=== PATIENT | female | born 1955 | race Caucasian/White ===

== ENCOUNTER 2016-09-04 16:57 | Emergency (ER) | payer BC, OTHER ==
--- NOTE | 2016-09-04 18:43 | ERNOTE ---
Syncope ER HPI Date of Service: 09/04/16 Stated Complaint: PASSED OUT AT WORK Time Seen by Provider: 09/04/16 18:01 Source: patient Exam Limitations: no limitations Allergies/Adverse Reactions: Allergies No Known Allergies Allergy (Unverified 09/04/16 17:51) Home Medications: HOME MEDICATIONS ALPRAZolam [Xanax] 0.5 mg PO HS 09/04/16 [Last Taken Unknown] PARoxetine HCL [Paxil] 20 mg PO HS 09/04/16 [Last Taken Unknown] Pantoprazole Sodium [Protonix] 20 mg PO DAILY 09/04/16 [Last Taken Unknown] - History of Present Illness Narrative: Pt. comes in with c/o passing out at work 4 hours ago. Pt. denies any recent illness, dizziness, NVD, SOB, or fever. Pt. does state that she had R calf pain that she was given an injection for her knee for and it has now moved to her L calf and extends up her post leg to her hip. Pt. states that all symptoms have resolved at this time without treatment. Review of Systems - Review of Systems Constitutional: Present: no symptoms reported. Absent: recent illness, fever, chills, weakness, fatigue, malaise EYE: Present: no symptoms reported. Absent: blurred vision, double vision, vision changes ENT: Present: no symptoms reported. Absent: nose pain, nose congestion, nasal drainage Respiratory: Present: no symptoms reported. Absent: shortness of breath, cough , wheezing Cardiology: Present: no symptoms reported. Absent: chest pain, palpitations, edema Gastrointestinal/Abdominal: Present: no symptoms reported. Absent: nausea, vomiting, diarrhea, abdominal pain Genitourinary: Present: no symptoms reported Musculoskeletal: Present: muscle pain - L calf Skin: Present: no symptoms reported. Absent: rash, change in hair/nails Neurological: Present: headache. Absent: dizziness/light-headedness, numbness, tingling All Other Systems: All systems neg except as marked - Patient's Past Medical History Patient History - Medical: GERD Patient History - Cardiac/Respiratory: No pertinent hx Patient History - Cancer: No Hx of Cancer Patient History - Surgical Procedures: No surgical history Patient History - Other: None - Social History Living Situations: spouse Physical Exam - Physical Exam General Appearance: Present: wd/wn, alert, no apparent distress Eye Exam: Normal inspection: bilateral, PERRL: bilateral, EOMI: bilateral Ears, Nose, Throat: Present: normal ENT inspection, hearing grossly normal, normal pharynx Neck: Present: normal inspection, nontender Respiratory: Present: no respiratory distress, normal breath sounds, no accessory muscle use, chest nontender, lungs clear Cardiovascular/Chest: Present: regular rate, rhythm, no murmur, normal peripheral pulses Gastrointestinal/Abdominal: Present: normal bowel sounds, nontender, nondistended, soft, no organomegaly Back Exam: Present: normal inspection, normal range of motion, no CVA tenderness , no vertebral tenderness Extremity Exam: Present: no edema, normal range of motion, calf tenderness - L Neurological Exam: Present: alert, oriented, normal mood/affect, no motor/ sensory deficits, clip baker II-XII nml as tested, normal cerebellar test. Absent: motor weakness Skin Exam: Present: normal color, warm/dry. Absent: pallor, skin rash ED Progress - Date and Time Seen: Date and Time: 09/04/16 22:07 ruled out cardiac, infectious, and neurovascular causes for syncope. Feel that this may have been isolated problem probably vasovagal will have pt. follow up with PCP 09/04/16 22:22 - Results and Orders Patient's Lab Results:: I have reviewed the patient's lab results. - Vital Signs Patient's Vital Signs:: I have reviewed the patient's vital signs. Vital Signs: Vital Signs 09/04/16 09/04/16 17:39 17:45 Temperature 36.4 C L Pulse Rate 75 73 Respiratory 19 Rate Blood Pressure 170/100 O2 Sat by Pulse 98 Oximetry - EKG EKG: NSR EKG read: Interp. by me - CT/Ultrasound CT/Ultrasound Narrative: US negative for DVT CT head negative for any acute process. - Progress/Reassessment Chief Complaint: Syncopal Episode Progress:: Unchanged Departure Clinical Impression: Syncope Qualifiers: Syncope type: unspecified Qualified Code(s): R55 - Syncope and collapse - Departure Disposition: Home self-care Condition: Good Instructions: Syncope, [id number] Additional Instructions: Please follow up with primary provider on Wednesday and increase fluid intake Referrals: Patrick Kendall DO [Primary Care Provider] -
[2016-09-04 19:05] LABS: Hematocrit 37.5 % (37.0-47.0); Hemoglobin 12.1 gm/dL (12.5-16.0); Mean Cell Volume 90.8 fl (78-100); Mean Corpuscular Hemoglobin 29.3 pg (27-31); Mean Corpuscular Hgb Conc 32.3 g/dl (32-36); Neutrophil # 4.7 K/mm3 (1.3-6.0); Neutrophil % 63.2 % (42-75.0); Platelet Count 211 K/mm3 (150-450); Red Blood Count 4.13 M/mm3 (4.2-5.4); Red Cell Distribution Width 13.7 % (11.5-14.0); White Blood Count 7.4 K/mm3 (4.0-10.5)
[2016-09-04 19:13] LABS: Urine Bilirubin Negative (NEGATIVE); Urine Blood Negative /ul (NEGATIVE); Urine Ketone Negative (NEGATIVE); Urine Nitrite Negative (NEGATIVE); Urine Protein Negative (NEGATIVE); Urine Urobilinogen Normal (NORMAL); Urine pH 7.5 pH (5.0-7.0)
[2016-09-04 19:20] LABS: Troponin I Less than 0.017 ng/ml (0.00-0.10)
[2016-09-04 19:24] LABS: ALT 17 U/L (19-67); AST 13 U/L (0-48); Albumin * 3.6 gm/dl (3.4-5.0); Alkaline Phosphatase * 83 U/L (50-170); Anion Gap 10.8 mmol/L (6.8-13.8); BUN/Creatinine Ratio 24.4 (9.0-21.6); Bilirubin, Total 0.3 mg/dL (0.0-1.1); Blood Urea Nitrogen 22 mg/dL (3-23); Ca. Corrected For Albumin 9.2 mg/dL (8.4-10.2); Calcium * 9.2 mg/dL (7.9-10.9); Carbon Dioxide 29.7 mmol/L (24-32.6); Chloride 107 mmol/L (97-106); Glucose * 99 mg/dL (70-110); Potassium 4.5 mmol/L (3.4-4.6); Sodium 143 mmol/L (132-142); TSH * 1.113 uIU/mL (0.358-3.74)
[2016-09-04 19:29] LABS: Urine Appearance Clear; Urine Bacteria None Seen; Urine Color Yellow; Urine RBC None Seen /hpf (0-5); Urine WBC None Seen /hpf (0-5)
[2016-09-04 22:26] VITALS: BP 157/94
== END 2016-09-04 22:32 | disposition home or self-care (01) ==
LOC: ER 16:57
DX: R55 Syncope and collapse (principal); K21.9 Gastro-esophageal reflux disease without esophagitis; M79.662 Pain in left lower leg